=== PATIENT | female | born 1965 | race Caucasian/White ===

== ENCOUNTER 2016-07-24 09:45 | Emergency (ER) | payer OTHER ==
[~2016-07-24] VITALS: Ht 160 cm; Wt 75.4 kg
[2016-07-24 10:19] LABS: HEMATOCRIT 39.6 % (36.0-46.0); MCHC 32.6 G/DL (30.0-36.0); MCV 82.8 FL (83-99); MEAN PLAT.VOLUME 10.2 uM^3 (9.5-12.4); PLATELET COUNT 408 K/uL (156-360); RBC DIS.WIDTH-CV 14.1 % (11.8-14.6); RBC DIS.WIDTH-SD 42.2 % (39-53); RED BLOOD COUNT 4.78 M/uL (3.80-5.20); WHITE BLOOD COUNT 17.4 K/uL (4.1-10.2)
[2016-07-24 10:27] LABS: CHLORIDE 107 mEq/L (99-109); POTASSIUM 3.9 mEq/L (3.7-5.4); SODIUM 140 mEq/L (136-147)
[2016-07-24 10:29] LABS: GLUCOSE 146 mg/dL (70-99)
[2016-07-24 10:31] LABS: ANION GAP 12 MEQ/L (2-14); TOTAL BILIRUBIN 0.8 mg/dL (0.0-1.0)
[2016-07-24 10:33] LABS: ALKALINE PHOSPHATASE 84 IU/L (3-129); GFR ESTIMATE (CALCULATED) 46 mL/min/
[2016-07-24 10:34] LABS: UREA NITROGEN (BUN) 14 mg/dL (9-23)
[2016-07-24 10:48] LABS: QUANTITATIVE HCG < 4.0 MIU/ML
[2016-07-24 11:37] LABS: ADD MIUA? YES; BILIRUBIN NEGATIVE; BLOOD NEGATIVE; COLOR YELLOW ((YELLOW)); GLUCOSE (STRIP) NEGATIVE; KETONES 20; LEUKOCYTES TRACE; NITRITE NEGATIVE; PROTEIN (STRIP) 100; SPECIFIC GRAVITY 1.021 (1.000-1.030); UROBILINOGEN 0.2 MG/DL (0.2-1.0)
[2016-07-24 11:47] LABS: BACTERIA RARE /HPF; EPITHELIAL CELLS RARE /HPF; MUCUS TRACE /LPF; UCUL ADDED? NO; WHITE BLOOD CELLS 15-20 /HPF (0-5)
[2016-07-24] MEDS ORDERED: ZOFRAN ODT4 MG PO (13:52)
[2016-07-24] MEDS ORDERED: NAPROXEN500 MG PO (13:52)
[2016-07-24 14:28] VITALS: BP 131/74
== END 2016-07-24 14:29 | disposition home or self-care (01) ==
LOC: EME 09:45
DX: N20.1 Calculus of ureter (principal)
CPT/HCPCS: 74177; 80053; 81003; 84702; 85027; 99281; 99284; J1885; J7120

== ENCOUNTER 2016-07-25 13:22 | Inpatient (IN) | payer OTHER ==
[~2016-07-25] VITALS: Ht 160 cm; Wt 76.7 kg
[~2016-07-25 13:22] MED LIST: NAPROXEN500 MG PO; ZOFRAN ODT4 MG PO
[2016-07-25 14:26] LABS: HEMATOCRIT 35.4 % (36.0-46.0); MCH 26.8 PG (29.0-34.0); MCHC 31.9 G/DL (30.0-36.0); MCV 84.1 FL (83-99); RBC DIS.WIDTH-CV 14.5 % (11.8-14.6); RBC DIS.WIDTH-SD 44.1 % (39-53); RED BLOOD COUNT 4.21 M/uL (3.80-5.20); WHITE BLOOD COUNT 11.2 K/uL (4.1-10.2)
[2016-07-25 14:37] LABS: CHLORIDE 104 mEq/L (99-109); POTASSIUM 3.8 mEq/L (3.7-5.4); SODIUM 137 mEq/L (136-147)
[2016-07-25 14:39] LABS: GLUCOSE 107 mg/dL (70-99)
[2016-07-25 14:40] LABS: ANION GAP 10 MEQ/L (2-14)
[2016-07-25 14:43] LABS: GFR ESTIMATE (CALCULATED) 34 mL/min/
[2016-07-25 14:44] LABS: UREA NITROGEN (BUN) 19 mg/dL (9-23)
[2016-07-25 15:14] LABS: ABS NEUTROPHIL COUNT 9.6; ANISOCYTOSIS 1+; ATYPICAL LYMPHOCYTE 4.4 %; BAND NEUTROPHILS 1.7 % (0-8.0); EOSINOPHIL ABS CT 0.1; EOSINOPHILS 0.9 % (0-5.0); INSTRUMENT ABS NEUTROPHIL CT 9.9 K/uL; LYMPHOCYTES 5.3 % (15.0-45.0); MEAN PLAT.VOLUME 10.3 uM^3 (9.5-12.4); MICROCYTOSIS 1+; PLAT.SUFFICIENCY ADEQUATE; POIKILOCYTOSIS 2+; POLYCHROMASIA 1+; SEG.NEUTROPHILS 84.2 % (46.0-76.0); SMUDGE CELLS 0.9
[2016-07-25 15:18] LABS: PLATELET COUNT 247 K/uL (156-360)
[2016-07-25 17:26] VITALS: BP 129/67
[2016-07-25 19:45] VITALS: BP 145/67
[2016-07-25 21:03] LABS: ADD MIUA? YES; BILIRUBIN NEGATIVE; BLOOD SMALL; COLOR DK YELLOW ((YELLOW)); GLUCOSE (STRIP) NEGATIVE; KETONES 20; LEUKOCYTES LARGE; NITRITE NEGATIVE; PROTEIN (STRIP) 100; SPECIFIC GRAVITY 1.028 (1.000-1.030); UROBILINOGEN 0.2 MG/DL (0.2-1.0)
[2016-07-25 21:15] LABS: UCUL ADDED? YES; WHITE BLOOD CELLS TNTC /HPF (0-5)
[2016-07-25 23:25] VITALS: BP 145/81
[2016-07-26] VITALS (9 sets, daily range): BP systolic 127–182; BP diastolic 71–100
[2016-07-26 07:04] LABS: ANION GAP 11 MEQ/L (2-14); CHLORIDE 109 MEQ/L (99-109); GFR ESTIMATE (CALCULATED) 42 mL/min/; GLUCOSE 96 mg/dL (70-99); POTASSIUM 3.7 MEQ/L (3.7-5.4); SAMPLE HEMOLYSIS CHECK 0; SAMPLE ICTERIC CHECK 0; SAMPLE LIPEMIA CHECK 0; SODIUM 140 MEQ/L (136-147); UREA NITROGEN (BUN) 17 mg/dL (9-23)
[2016-07-26 07:22] LABS: HEMATOCRIT 30.4 % (36.0-46.0); MCH 26.6 PG (29.0-34.0); MCHC 30.9 G/DL (30.0-36.0); MCV 86.1 FL (83-99); RBC DIS.WIDTH-CV 14.6 % (11.8-14.6); RBC DIS.WIDTH-SD 45.9 % (39-53); RED BLOOD COUNT 3.53 M/uL (3.80-5.20)
[2016-07-26 07:24] LABS: WHITE BLOOD COUNT 6.6 K/uL (4.1-10.2)
[2016-07-26 08:01] LABS: MEAN PLAT.VOLUME 11.1 uM^3 (9.5-12.4)
[2016-07-26 08:14] LABS: PLATELET COUNT 162 K/uL (156-360)
[2016-07-26 16:17] LABS: HEMATOCRIT 33.7 % (36.0-46.0); MCH 26.7 PG (29.0-34.0); MCHC 31.2 G/DL (30.0-36.0); MCV 85.8 FL (83-99); MEAN PLAT.VOLUME 10.2 uM^3 (9.5-12.4); PLATELET COUNT 192 K/uL (156-360); RBC DIS.WIDTH-CV 14.5 % (11.8-14.6); RBC DIS.WIDTH-SD 45.9 % (39-53); RED BLOOD COUNT 3.93 M/uL (3.80-5.20)
[2016-07-26 16:26] LABS: CHLORIDE 110 mEq/L (99-109); POTASSIUM 3.9 mEq/L (3.7-5.4); SODIUM 140 mEq/L (136-147)
[2016-07-26 16:28] LABS: GLUCOSE 97 mg/dL (70-99)
[2016-07-26 16:28] LABS: POINT-OF-CARE METER ID UU14162508
[2016-07-26 16:29] LABS: ANION GAP 13 MEQ/L (2-14)
[2016-07-26 16:32] LABS: GFR ESTIMATE (CALCULATED) 39 mL/min/
[2016-07-26 16:33] LABS: UREA NITROGEN (BUN) 17 mg/dL (9-23)
[2016-07-26 16:40] LABS: TROP-I INTERPRETATION NEGATIVE; TROPONIN-I 0.01 ng/mL (0.0-0.30)
[2016-07-26 17:38] LABS: EOSINOPHIL (%) 0 % (0-5); IMMATURE GRANULOCYTE (%) 0.3 % (0.0-0.7); LYMPHOCYTE COUNT 0.7 K/uL (1.0-2.8); MONOCYTE (%) 3.8 % (3-12); MONOCYTE COUNT 0.2 K/uL (0-0.8); NEUTROPHIL (%) 83.9 % (45-76)
[2016-07-26 18:22] LABS: ABS NEUTROPHIL COUNT 5.3; ANISOCYTOSIS 1+; ATYPICAL LYMPHOCYTE 0.9 %; BAND NEUTROPHILS 5.3 % (0-8.0); BASOPHILS 0.9 %; BURR CELLS 2+; EOSINOPHIL ABS CT 0; HEMATOLOGY COMMENT 1 SN; MICROCYTOSIS 1+; PLAT.SUFFICIENCY ADEQUATE; SEG.NEUTROPHILS 83.3 % (46.0-76.0); SMUDGE CELLS 2.6
[2016-07-26 23:26] LABS: HEMATOCRIT 33.9 % (36.0-46.0); MCH 26.6 PG (29.0-34.0); MCHC 31.3 G/DL (30.0-36.0); MCV 85.2 FL (83-99); MEAN PLAT.VOLUME 10.8 uM^3 (9.5-12.4); PLATELET COUNT 183 K/uL (156-360); RBC DIS.WIDTH-CV 14.6 % (11.8-14.6); RBC DIS.WIDTH-SD 45.4 % (39-53); RED BLOOD COUNT 3.98 M/uL (3.80-5.20); WHITE BLOOD COUNT 6.2 K/uL (4.1-10.2)
[2016-07-26 23:35] LABS: CHLORIDE 113 mEq/L (99-109); POTASSIUM 4.5 mEq/L (3.7-5.4); SODIUM 143 mEq/L (136-147)
[2016-07-26 23:37] LABS: GLUCOSE 103 mg/dL (70-99)
[2016-07-26 23:39] LABS: ANION GAP 10 MEQ/L (2-14)
[2016-07-26 23:41] LABS: ALKALINE PHOSPHATASE 97 IU/L (3-129); GFR ESTIMATE (CALCULATED) 46 mL/min/
[2016-07-26 23:42] LABS: UREA NITROGEN (BUN) 17 mg/dL (9-23)
[2016-07-26 23:45] LABS: TOTAL BILIRUBIN 0.6 mg/dL (0.0-1.0)
[2016-07-26 23:48] LABS: TROP-I INTERPRETATION NEGATIVE; TROPONIN-I 0.04 ng/mL (0.0-0.30)
[2016-07-27] VITALS (8 sets, daily range): BP systolic 122–160; BP diastolic 65–81
[2016-07-27 07:32] LABS: HEMATOCRIT 28.4 % (36.0-46.0); MCH 26.7 PG (29.0-34.0); MCV 86.3 FL (83-99); MEAN PLAT.VOLUME 11.2 uM^3 (9.5-12.4); PLATELET COUNT 137 K/uL (156-360); RBC DIS.WIDTH-CV 14.9 % (11.8-14.6); RBC DIS.WIDTH-SD 47.3 % (39-53); RED BLOOD COUNT 3.29 M/uL (3.80-5.20); WHITE BLOOD COUNT 5.4 K/uL (4.1-10.2)
[2016-07-27 07:59] LABS: ANION GAP 9 MEQ/L (2-14); CHLORIDE 113 MEQ/L (99-109); GFR ESTIMATE (CALCULATED) 51 mL/min/; GLUCOSE 97 mg/dL (70-99); POTASSIUM 4.1 MEQ/L (3.7-5.4); SAMPLE HEMOLYSIS CHECK 0; SAMPLE ICTERIC CHECK 0; SAMPLE LIPEMIA CHECK 0; SODIUM 142 MEQ/L (136-147); UREA NITROGEN (BUN) 15 mg/dL (9-23)
[2016-07-27 09:14] LABS: EOSINOPHIL (%) 0.4 % (0-5); IMMATURE GRANULOCYTE (%) 0.6 % (0.0-0.7); INSTRUMENT ABS NEUTROPHIL CT 4.3 K/uL; LYMPHOCYTE COUNT 0.5 K/uL (1.0-2.8); MONOCYTE (%) 9.4 % (3-12); MONOCYTE COUNT 0.5 K/uL (0-0.8); NEUTROPHIL (%) 79.8 % (45-76); NEUTROPHIL COUNT 4.3 K/uL (1.8-6.4); PLAT.SUFFICIENCY DECREASED
[2016-07-27 18:25] LABS: D-DIMER ELISA 3.29 mg/L FEU (< 0.57)
[2016-07-27 18:50] LABS: TROP-I INTERPRETATION NEGATIVE; TROPONIN-I 0.06 ng/mL (0.0-0.30)
[2016-07-28 05:15] VITALS: BP 155/80
[2016-07-28 07:22] LABS: EOSINOPHIL (%) 0.7 % (0-5); EOSINOPHIL COUNT 0.1 K/uL (0-0.3); HEMATOCRIT 26.7 % (36.0-46.0); IMMATURE GRANULOCYTE (%) 1.1 % (0.0-0.7); IMMATURE GRANULOCYTE COUNT 0.1 K/uL; INSTRUMENT ABS NEUTROPHIL CT 6.4 K/uL; LYMPHOCYTE COUNT 0.6 K/uL (1.0-2.8); MCH 26.5 PG (29.0-34.0); MCHC 31.5 G/DL (30.0-36.0); MCV 84.2 FL (83-99); MEAN PLAT.VOLUME 11.5 uM^3 (9.5-12.4); MONOCYTE (%) 12.5 % (3-12); NEUTROPHIL (%) 78.4 % (45-76); NEUTROPHIL COUNT 6.4 K/uL (1.8-6.4); NRBC (%) 0.2 /100 WBC (0-0); PLATELET COUNT 153 K/uL (156-360); RBC DIS.WIDTH-SD 45.9 % (39-53); RED BLOOD COUNT 3.17 M/uL (3.80-5.20)
[2016-07-28 07:32] LABS: WHITE BLOOD COUNT 8.2 K/uL (4.1-10.2)
[2016-07-28 07:42] LABS: ANION GAP 9 MEQ/L (2-14); CHLORIDE 115 MEQ/L (99-109); GFR ESTIMATE (CALCULATED) > 59 mL/min/; GLUCOSE 95 mg/dL (70-99); POTASSIUM 3.7 MEQ/L (3.7-5.4); SAMPLE HEMOLYSIS CHECK 0; SAMPLE ICTERIC CHECK 0; SAMPLE LIPEMIA CHECK 0; SODIUM 143 MEQ/L (136-147); UREA NITROGEN (BUN) 14 mg/dL (9-23)
[2016-07-28 08:15] VITALS: BP 165/87
[2016-07-28 12:00] VITALS: BP 171/89
[2016-07-28 16:45] VITALS: BP 184/98
[2016-07-28 16:57] LABS: C DIFF TOXIN NEGATIVE (NEGATIVE)
[2016-07-28 17:02] LABS: SPECIMEN PROCESSING CONTROL PASS
[2016-07-28 17:03] LABS: PROBE CHECK PASS
[2016-07-28 20:30] VITALS: BP 151/93
[2016-07-29] VITALS (8 sets, daily range): BP systolic 138–180; BP diastolic 71–98
[2016-07-29 07:55] LABS: EOSINOPHIL (%) 2.6 % (0-5); EOSINOPHIL COUNT 0.2 K/uL (0-0.3); HEMATOCRIT 26.4 % (36.0-46.0); IMMATURE GRANULOCYTE (%) 3.3 % (0.0-0.7); IMMATURE GRANULOCYTE COUNT 0.3 K/uL; INSTRUMENT ABS NEUTROPHIL CT 6.7 K/uL; LYMPHOCYTE COUNT 1.2 K/uL (1.0-2.8); MCH 26.6 PG (29.0-34.0); MCHC 32.2 G/DL (30.0-36.0); MCV 82.5 FL (83-99); MEAN PLAT.VOLUME 11.5 uM^3 (9.5-12.4); MONOCYTE (%) 10.6 % (3-12); NEUTROPHIL (%) 70.7 % (45-76); NEUTROPHIL COUNT 6.7 K/uL (1.8-6.4); PLATELET COUNT 198 K/uL (156-360); RBC DIS.WIDTH-CV 15.1 % (11.8-14.6); RBC DIS.WIDTH-SD 45.6 % (39-53); WHITE BLOOD COUNT 9.4 K/uL (4.1-10.2)
[2016-07-29 08:26] LABS: ANION GAP 11 MEQ/L (2-14); CHLORIDE 113 MEQ/L (99-109); GFR ESTIMATE (CALCULATED) > 59 mL/min/; GLUCOSE 100 mg/dL (70-99); POTASSIUM 3.4 MEQ/L (3.7-5.4); SAMPLE HEMOLYSIS CHECK 0; SAMPLE ICTERIC CHECK 0; SAMPLE LIPEMIA CHECK 0; SODIUM 145 MEQ/L (136-147); UREA NITROGEN (BUN) 10 mg/dL (9-23)
[2016-07-30 05:13] VITALS: BP 153/75
[2016-07-30 07:04] LABS: HEMATOCRIT 28.3 % (36.0-46.0); MCH 26.4 PG (29.0-34.0); MCHC 32.5 G/DL (30.0-36.0); MCV 81.3 FL (83-99); MEAN PLAT.VOLUME 10.7 uM^3 (9.5-12.4); PLATELET COUNT 224 K/uL (156-360); RBC DIS.WIDTH-CV 15.1 % (11.8-14.6); RBC DIS.WIDTH-SD 44.4 % (39-53); RED BLOOD COUNT 3.48 M/uL (3.80-5.20); WHITE BLOOD COUNT 9.2 K/uL (4.1-10.2)
[2016-07-30 07:33] LABS: ANION GAP 10 MEQ/L (2-14); CHLORIDE 106 MEQ/L (99-109); GFR ESTIMATE (CALCULATED) > 59 mL/min/; GLUCOSE 98 mg/dL (70-99); POTASSIUM 3.3 MEQ/L (3.7-5.4); SAMPLE HEMOLYSIS CHECK 0; SAMPLE ICTERIC CHECK 0; SAMPLE LIPEMIA CHECK 0; SODIUM 142 MEQ/L (136-147); UREA NITROGEN (BUN) 7 mg/dL (9-23)
[2016-07-30 08:07] VITALS: BP 172/92
[2016-07-30 09:22] LABS: ABS NEUTROPHIL COUNT 6.7; ANISOCYTOSIS 1+; EOSINOPHIL ABS CT 0.4; INSTRUMENT ABS NEUTROPHIL CT 5.9 K/uL; MICROCYTOSIS 1+; PLAT.SUFFICIENCY ADEQUATE
[2016-07-30 09:24] VITALS: BP 142/78
[2016-07-30 11:46] VITALS: BP 126/77
[2016-07-30 15:34] VITALS: BP 150/94
[2016-07-30] MEDS ORDERED: LEVOFLOXACIN750 MG PO (17:20)
[2016-07-30] MEDS ORDERED: AMLODIPINE BESYL5 MG PO (17:21)
== END 2016-07-30 18:39 | disposition home or self-care (01) | DRG 871 ==
LOC: EME 13:22 → EDOF 15:29 → 2EAST 15:29 → 4EAST 15:29 → 2EAST 16:42 → 4EAST 07-26 17:10
PROVIDERS: Emergency Medicine; Hospitalist; Internal Medicine; Internal Medicine Cardiovascular Disease; Pediatrics; Physician Assistant Medical; Student in an Organized Health Care Education/Training Program
PROC: 0T778DZ Dilation of Left Ureter with Intraluminal Device, Via Natural or Artificial Opening Endoscopic (ICD-10-PCS; principal; 2016-07-27)
DX: A41.9 Sepsis, unspecified organism (principal); N17.9 Acute kidney failure, unspecified; N13.2 Hydronephrosis with renal and ureteral calculous obstruction; I48.92 Unspecified atrial flutter; N12 Tubulo-interstitial nephritis, not specified as acute or chronic; N20.0 Calculus of kidney; E86.0 Dehydration; B96.20 Unspecified Escherichia coli [E. coli] as the cause of diseases classified elsewhere; I10 Essential (primary) hypertension; R07.89 Other chest pain; R00.0 Tachycardia, unspecified; R01.1 Cardiac murmur, unspecified; J69.0 Pneumonitis due to inhalation of food and vomit; R19.7 Diarrhea, unspecified
CPT/HCPCS: 71010; 71275; 74000; 76000; 76770; 80048; 80048 91; 80053; 81003; 82365 90; 82948; 83605; 84484; 85025; 85027; 85379; 87040; 87077; 87086; 87186; 87493; 87801; 93005; 93306; 94799; 99202; 99281; 99285; C1876; J0153; J0360; J0610; J0696; J1626; J1644; J2250; J2270; J2310; J2405; J2543; J2765; J3010; J7030; J7040; J7050; J7120

== ENCOUNTER → 2016-09-06 | Outpatient (CLI) | payer OTHER ==
[~2016-09-06] VITALS: Ht 160 cm; Wt 74.8 kg
[~2016-09-06] MED LIST changes: +AMLODIPINE BESYL5 MG PO; +INDERAL10 MG PO; +LEVOFLOXACIN750 MG PO; +PROBIOTIC1 EAC1 PO
== END | disposition home or self-care (01) ==
LOC: AMB 08-23 08:30
PROC: 0TF4XZZ Fragmentation in Left Kidney Pelvis, External Approach (ICD-10-PCS; principal; 2016-09-06)
DX: N20.0 Calculus of kidney (principal); I10 Essential (primary) hypertension; J45.909 Unspecified asthma, uncomplicated; Z87.891 Personal history of nicotine dependence; F41.9 Anxiety disorder, unspecified
CPT/HCPCS: 74010; J0690; J1580; J2250; J3010